=== PATIENT | female | born 1955 | race Caucasian/White ===

== ENCOUNTER → 2019-03-15 | Outpatient (CLI) | payer BC ==
[~2019-03-15] MED LIST: ASPI-1471 PO; CITA-145 PO; HYDR-2966 PO; LANI SUBQ; LISI-374 PO; SIMV-49 PO
--- NOTE | 2019-03-15 17:34 | RADIOLOGY IMAGING REPORT ---
FACILITY: [facility] [place] PATIENT NAME: Ciera Faria : 1955 MR: [id number] V: [id number] EXAM DATE: ORDERING PHYSICIAN: MARIA DOLORES VALENZUELA TECHNOLOGIST: Location: [facility] [place] Patient: Ciera Faria : 1955 Visit/Account:[id number] Date of Sevice: 03/15/2019 Exam type: L-SPINE 2 OR 3 VIEW History: Back pain after slip and fall one year ago Comparison: None. Findings: There five nonrib-bearing lumbar-type vertebral bodies present. Mild to moderate multilevel spondylo tic changes throughout the lumbar spine with mild disc space narrowing at L1-2 mild to moderate disc space narrowing L2-3 mild disc space narrowing L3-4 moderate disc space narrowing L4-5 and L5-S1. Sm all anterior osteophytes are seen throughout the lumbar spine. There is very mild loss of height of the superior endplate of L3. Incidental noted are sclerotic changes at the SI joints bilaterally whi ch are likely arthritic. Multiple laminated calcifications the right upper quadrant likely represent gallstones. There are moderate vascular calcifications present IMPRESSION: 1. Mild to moderate spondylotic changes the lumbar spine Mild loss of height of the super endplate of L3 of indeterminate age although likely old due to the a nterior osteophyte Cholelithiasis Moderate vascular calcifications Report Dictated By: Nicole Dominguez MD at 03/15/2019 5:24 PM Report E-Signed By: Nicole Dominguez MD at 03/15/2019 5:27 PM WSN:[email or web address]
== END ==
LOC: RAD 15:58
PROVIDERS: ATTEND Family Medicine
DX: M47.896 Other spondylosis, lumbar region (principal); K80.20 Calculus of gallbladder without cholecystitis without obstruction; I25.10 Atherosclerotic heart disease of native coronary artery without angina pectoris
CPT/HCPCS: 72100